=== PATIENT | female | born 1950 | race African-American/Black ===

== ENCOUNTER 2018-07-20 08:15 | Inpatient (IN) | payer BC, OTHER ==
[2018-08-17 07:16] VITALS: BMI 28.9
[2018-08-17] MEDS: oxyCODONE HCL 10 MG SUSTAINED ACTING TABLET PO ONE ×2 (07:30→14:09)
--- NOTE | 2018-08-17 07:48 | HP ---
Admitting History and Physical - Admission History of Present Illness: The patient is a 68 yo female who presents for left lower pain with some tingling/numbness. She states that her symptoms stated many years ago in her right leg. Currently it is her left leg that has pain. No difficulty ambulating and denies any weakness. No CP/SOB/fevers. In the past she has tried physical therapy to help her symptoms with some success.She doesn't take daily pain medications. No difficulty with urination/bowel movements. History Source: Patient Limitations to Obtaining History: No Limitations - Past Medical History Cardiovascular: Yes: HTN. No: Deep Vein Thrombosis Pulmonary: No: Asthma, Bronchitis, Sleep Apnea Gastrointestinal: Yes: GERD. No: Constipation, Gastritis Renal/: No: Renal Failure, Hematuria - Smoking History Smoking history: Former smoker Have you smoked in the past 12 months: No - Alcohol/Substance Use Hx Alcohol Use: Yes (SOCIAL WINE) Home Medications - Allergies Allergies/Adverse Reactions: Allergies Allergy/AdvReac Type Severity Reaction Status Date / Time No Known Allergies Allergy Verified 07/31/18 15:47 - Home Medications Home Medications: Ambulatory Orders Amlodipine Besylate 5 mg PO DAILY 07/31/18 Aspirin [Aspirin EC] 81 mg PO DAILY 07/31/18 Cholecalciferol (Vitamin D3) [Vitamin D3] 2,000 iu PO DAILY 07/31/18 Losartan/Hydrochlorothiazide [Losartan-Hctz 100-25 mg Tab] 1 tab PO DAILY Review of Systems - Review of Systems Constitutional: denies: Chills, Fever Neck: denies: Decreased ROM, Pain on Movement Cardiovascular: denies: Chest Pain, Palpitations, Shortness of Breath Respiratory: denies: Cough, SOB Gastrointestinal: denies: Abdominal Pain, Constipation Genitourinary: denies: Burning, Dysuria Musculoskeletal: reports: Extremity Pain (left leg pain). denies: Muscle Weakness Integumentary: reports: Other (no erythema or wounds to the back). denies: Bruising Hematology/Lymphatic: denies: Easily Bruised, Excessive Bleeding Physical Examination Vital Signs: Vital Signs Temperature 97.8 F 08/17/18 07:13 Pulse Rate 60 08/17/18 07:13 Respiratory Rate 18 08/17/18 07:13 Blood Pressure 133/71 08/17/18 07:13 O2 Sat by Pulse Oximetry (%) Constitutional: Yes: Well Nourished, No Distress, Calm Eyes: Yes: Conjunctiva Clear. No: Sclera Icterus HENT: Yes: WNL, Atraumatic, Normocephalic Neck: Yes: WNL, Supple, Trachea Midline Cardiovascular: Yes: WNL, Regular Rate and Rhythm Respiratory: Yes: WNL, Regular, CTA Bilaterally Gastrointestinal: Yes: WNL, Soft. No: Tenderness Musculoskeletal: No: Joint Swelling, Muscle Weakness Extremities: No: Calf Tenderness Edema: No Peripheral Pulses WNL: Yes Peripheral Pulses: Left Doralis Pedis: 2+, Right Dorsalis Pedis: 2+ Neurological: Yes: WNL, Alert, Oriented ...Motor Strength: WNL, LUE, LLE, RUE, RLE Psychiatric: Yes: WNL, Alert, Oriented Assessment/Plan 68 yo female with spondylolisthesis, plan for TLIF L4-L5 today Npo for surgery IV abx at times of surgery DVT with SCDs/early ambulation post-op
[2018-08-17] MEDS ORDERED: BUPIVACAINE HCL/PF (5 MG/ML) 30 ML VIAL IJ ONE (08:05)
[2018-08-17] MEDS ORDERED: MIDAZOLAM HCL 2 MG/2 ML SINGLE DOSE VIAL ONE (08:05)
[2018-08-17] MEDS ORDERED: BUPIVACAINE LIPOSOME/PF (EXPAREL) 266 MG/20 ML VIAL ONE (08:05)
[2018-08-17] MEDS ORDERED: THROMBIN (RECOMBINANT) 5,000 UNIT VIAL TP ONE (08:37)
[2018-08-17] MEDS ORDERED: GUM MASTIC/STORAX/MSAL/ALCOHOL 1 DRP DROPSBTL MC ONE (08:37)
[2018-08-17] MEDS ORDERED: GELATIN SPONGE,ABSORBABLE 1 GM PACKET TP ONE (10:00)
[2018-08-17] MEDS ORDERED: THROMBIN (BOVINE) 5,000 UNIT VIAL TP ONE (10:00)
[2018-08-17] MEDS ORDERED: ONDANSETRON 4 MG/2 ML VIAL ONE (10:10)
[2018-08-17] MEDS ORDERED: DEXAMETHASONE SOD PHOSPHATE 4 MG/1 ML VIAL ONE (10:10)
[2018-08-17] MEDS ORDERED: oxyCODONE HCL 5 MG TABLET PO PRN (11:16)
[2018-08-17] MEDS ORDERED: ONDANSETRON 4 MG/2 ML VIAL IVPUSH PRN (11:16)
[2018-08-17] MEDS ORDERED: ACETAMINOPHEN 1000 MG/100 ML VIAL (NON FORMULARY) IVPB ONE (11:21)
--- NOTE | 2018-08-17 11:27 | OP ---
Operative Note - Note: Operative Date: 08/17/18 Pre-Operative Diagnosis: lumbar spondylolithesis Operation: posterior lumbar decompression, fusion, instrumentation. Transformainal lumbar interbody fusion of L4-5 with allograft and neuromonitoring Surgeon: Fidel Rachel Website Designer: Belen Maguire Anesthesiologist/MEDICAL HOUSEKEEPER: Jessica Hodge Anesthesia: Spinal Estimated Blood Loss (mls): 20 Fluid Volume Replaced (mls): 800 Operative Report Dictated: Yes
--- NOTE | 2018-08-17 11:28 | SURG ---
Surgery Fish Checker Note Fish Checker: Belen Maguire PA-C Date of Service: 08/17/18 Diagnosis: lumbar spondylolisthesis Procedure: posterior lumbar decompression, fusion, instrumentation. Transformainal lumbar interbody fusion of L4-5 with allograft and neuromonitoring I was present for the entirety of the operative procedure. For further detail, please refer to operative report. Visit type - Case Type Case Type: Scheduled - Emergency Emergency Visit: No - New patient This patient is new to me today: Yes Date on this admission: 08/17/18
[2018-08-17] MEDS ORDERED: LACTATED RINGERS SOLUTION 1,000 ML IV SCH (11:30)
[2018-08-17] MEDS: CEFAZOLIN 1 GM/D5W 1 GM/50 ML BAG IVPB SCH (17:30)
[2018-08-17] MEDS: diazePAM 2 MG TABLET PO SCH (17:30)
[2018-08-17] MEDS: oxyCODONE HCL 5 MG TABLET PO PRN (19:29)
[2018-08-17] MEDS: ACETAMINOPHEN 500 MG TABLET (FP) PO SCH (20:32)
--- NOTE | 2018-08-17 21:12 | OP ---
DATE OF OPERATION: 08/17/2018 PREOPERATIVE DIAGNOSIS: Spondylolisthesis at L4-5. POSTOPERATIVE DIAGNOSIS: Spondylolisthesis at L4-5. PROCEDURE PERFORMED: 1. Transforaminal lumbar interbody fusion, L4-5. 2. Placement of instrumentation. 3. Placement of prosthetic cage. SURGEON: Fidel Rachel MD BATON TEACHER: LUKE Chavez ESTIMATED BLOOD LOSS: 50 mL. IV FLUIDS: Per Anesthesia. ANESTHESIA: Spinal/TLIP block. COMPLICATIONS: There were none. DISPOSITION: Patient brought to the PACU in stable condition. INDICATION FOR SURGERY: The patient is a 68-year-old female who has been suffering from pain from her back down leg. X-rays and MRI were completed, which noted that she had spondylolisthesis at L4-5. She had gone through an exhaustive course of treatment for this, which included medications, physical therapy as well as injections. Unfortunately, her pain continued to persist despite all this. At this point, risks, benefits, and alternatives were discussed and the patient consented to surgery. OPERATIVE NOTE: The patient was brought to the operating room by the anesthesia staff. After appropriate patient identification was performed, spinal anesthesia was given, a TLIP block was also given. The patient was able to position herself prone onto the OR table, with all areas of bony prominences well padded at this time. The C-arm was brought in. The L4 and L5 pedicles were marked off. Her back was prepped and draped in a sterile manner. At this point, timeout was completed. Incisions were made bilaterally over the L4-L5 pedicles. Dissection was carried down to the fascia. The fascia was then split at this time. Under C-arm guidance, trocars were advanced to the L4-L5 pedicles. Through the trocars, a wire was inserted and tap was performed and screws inserted, and left-hand side retractor blades were set up to expose the L4-5 facet joint. The facet joint was removed. The disk was entered using a series of pituitaries, Kerrisons and curettes. Diskectomy was completed. The endplates were decorticated at this time. A cage which was filled with bone graft was placed in TLIF pins were placed over the screws. A artemio was measured and placed in. Caps and compression was applied. On the right-hand side, a artemio was measured and placed in. Caps and compression was applied. The fascia was closed with a number 1 Vicryl suture. Subcutaneous tissue was closed with 2-0 Vicryl suture. Skin was closed with 3-0 Monocryl suture. Dermabond was applied, Steri-Strips were applied, sterile dressing applied. Patient was placed supine on OR bed and brought to the PACU in stable condition. Funmi [id number]
[2018-08-17] MEDS: DOCUSATE SODIUM 100 MG CAPSULE (FP) PO SCH (21:49)
[2018-08-18] MEDS: CEFAZOLIN 1 GM/D5W 1 GM/50 ML BAG IVPB SCH (00:18)
[2018-08-18] MEDS: ACETAMINOPHEN 500 MG TABLET (FP) PO SCH ×2 (03:54→11:51)
[2018-08-18 05:58] VITALS: BP 128/64; PULSE 49; TEMP 97.5
[2018-08-18] MEDS: diazePAM 2 MG TABLET PO SCH (06:20)
[2018-08-18] MEDS: KETOROLAC TROMETHAMINE 15 MG/ML VIAL IVPUSH PRN ×2 (06:20→13:30)
[2018-08-18 07:44] LABS: HEMATOCRIT 35.9 % (32.4-45.2); MCH 29.3 pg (25.7-33.7); MCHC 33.5 g/dl (32.0-36.0); MEAN CELL VOLUME 87.5 fl (80-96); MEAN PLT VOLUME 8.5 fl (7.5-11.1); PLATELET COUNT 217 K/MM3 (134-434); RBC 4.11 M/mm3 (3.60-5.2); RDW 12.8 % (11.6-15.6); WHITE BLOOD COUNT 10.5 K/mm3 (4.0-10.8)
[2018-08-18 07:51] LABS: CALCIUM 8.5 mg/dl (8.5-10); POTASSIUM 3.7 mmol/L (3.5-5.1)
--- NOTE | 2018-08-18 08:11 | PN ---
Progress Note (short form) - Note Progress Note: ANESTHESIA POSTOP 68 yo female POD#1 s/p lumbar fusion, spinal anesthetic and nerve block Patient sleeping comfortably. No complaints. Pain adequately controlled. No n/v VSS Afebrile Continue current care, encouraged IS and ambulation as directed by surgical team. No anesthetic complications
[2018-08-18] MEDS ORDERED: LOSARTAN 50MG/HCTZ 12.5MG 1 TAB (FP) PO SCH (10:00)
[2018-08-18] MEDS ORDERED: PATIENT'S OWN MEDICATION (NON-FORMULARY) (Losartan/Hydrochlorothiazide [Losartan-Hctz 100- PO SCH (10:00)
[2018-08-18] MEDS ORDERED: amLODIPine BESYLATE 5 MG TABLET (FP) PO SCH (10:00)
[2018-08-18] MEDS: DOCUSATE SODIUM 100 MG CAPSULE (FP) PO SCH (11:52)
[2018-08-18] MEDS: oxyCODONE HCL 5 MG TABLET PO PRN (11:52)
--- NOTE | 2018-08-18 17:26 | DS ---
Physical Exam: SUBJECTIVE: Patient seen and examined this am. She complains of pain to the left leg. She has been oob and ambulating with assistance. No CP or SOB. Voiding without difficulty. OBJECTIVE: Vital Signs Temperature 97.5 F L 08/18/18 05:00 Pulse Rate 49 L 08/18/18 05:00 Respiratory Rate 18 08/18/18 05:00 Blood Pressure 128/64 08/18/18 05:00 O2 Sat by Pulse Oximetry (%) 99 08/18/18 05:00 PHYSICAL EXAM GENERAL: The patient is awake, alert, and fully oriented, in no acute distress. LUNGS: Breath sounds equal, clear to auscultation bilaterally.. HEART: Regular rate and rhythm ABDOMEN: Soft, nontender, nondistended. EXTREMITIES: 2+ pulses, warm, well-perfused, no edema. NEUROLOGICAL: Normal speech, gait not observed. RLE 5/5 dorsi/platnar flexion and EHL. LLE 4/5 dorsi/plantar flexion and EHL. PSYCH: Normal mood, normal affect. LABS CBC,CMP WBC 10.5 K/mm3 (4.0-10.8) 08/18/18 07:14 RBC 4.11 M/mm3 (3.60-5.2) 08/18/18 07:14 Hgb 12.0 GM/dl (10.7-15.3) 08/18/18 07:14 Hct 35.9 % (32.4-45.2) 08/18/18 07:14 MCV 87.5 fl (80-96) 08/18/18 07:14 MCH 29.3 pg (25.7-33.7) 08/18/18 07:14 MCHC 33.5 g/dl (32.0-36.0) 08/18/18 07:14 RDW 12.8 % (11.6-15.6) 08/18/18 07:14 Plt Count 217 K/MM3 (134-434) 08/18/18 07:14 MPV 8.5 fl (7.5-11.1) 08/18/18 07:14 Sodium 134 mmol/L (136-145) L 08/18/18 07:14 Potassium 3.7 mmol/L (3.5-5.1) 08/18/18 07:14 Chloride 99 mmol/L (98-107) 08/18/18 07:14 Carbon Dioxide 26 mmol/L (21-32) 08/18/18 07:14 Anion Gap 9 MMOL/L (8-16) 08/18/18 07:14 BUN 14.0 mg/dl (7-18) 08/18/18 07:14 Creatinine 1.0 mg/dl (0.55-1.3) 08/18/18 07:14 Est GFR (CKD-EPI)AfAm 66.10 08/18/18 07:14 Est GFR (CKD-EPI)NonAf 57.03 08/18/18 07:14 Random Glucose 116 mg/dl (74-106) H 08/18/18 07:14 Calcium 8.5 mg/dl (8.5-10) 08/18/18 07:14 HOSPITAL COURSE: The patient was admitted to the Med-Surg Unit after an elective repair of their lumbar spondylolisthesis. Now, s/p L4-L5 TLIF. The day of surgery, the patient ambulated the hallways with assistance. Narcotic and non-narcotic pain management control was achieved with an oral and IV approach.An xray was obtained and confirmed hardware placement at L4-L5, no fractures or dislocations. Jolene-operative IV ABX were administered. DVT prophylaxis was achieved with SCDs and early ambulation. The patient ambulated with Physical Therapy and no services were recommended upon discharge. Narcotic scripts and or muscle relaxants were checked with [place] [employer] UNDER[employer] prior to escibe. The discharge instructions and an oral pain management plan were reviewed with the patient. All questions answered. Above plan discussed with Dr. Rachel and agreed. Date of Admission:08/17/18 Date of Discharge: 08/18/18 Minutes to complete discharge: 20 Visit type - Case Type Case Type: Scheduled - Emergency Emergency Visit: No - New patient This patient is new to me today: No
== END 2018-08-18 14:40 | disposition home or self-care (01) | DRG 304 ==
LOC: EDSTATUS 08:15 → FM/S 08-17 06:18
PROVIDERS: ADMIT Orthopaedic Surgery Orthopaedic Surgery of the Spine; ATTEND Orthopaedic Surgery Orthopaedic Surgery of the Spine
PROC: 0SG00KJ Fusion of Lumbar Vertebral Joint with Nonautologous Tissue Substitute, Posterior Approach, Anterior Column, Open Approach (ICD-10-PCS; 2018-08-17)
PROC: 0SB20ZZ Excision of Lumbar Vertebral Disc, Open Approach (ICD-10-PCS; 2018-08-17)
PROC: 4A1004G Monitoring of Central Nervous Electrical Activity, Intraoperative, Open Approach (ICD-10-PCS; 2018-08-17)
PROC: 0SG00AJ Fusion of Lumbar Vertebral Joint with Interbody Fusion Device, Posterior Approach, Anterior Column, Open Approach (ICD-10-PCS; principal; 2018-08-17 09:55)
DX: M43.16 Spondylolisthesis, lumbar region (principal); I10 Essential (primary) hypertension; K21.9 Gastro-esophageal reflux disease without esophagitis
CPT/HCPCS: 36415; 72100-TC-FY; 80048; 85027; 94760; 97116-GP; 97162-GP; J0131